=== PATIENT | male | born 1965 | race Caucasian/White ===

== ENCOUNTER 2016-10-16 18:38 | Emergency (ER) | payer MEDICARE, MEDICAID ==
--- NOTE | 2016-10-16 19:22 | XRAY Preliminary Report ---
Exam: XR KNEE 4 VIEW RT IMPRESSION: Moderate degenerative joint disease. [facility] SITE ID: [id number]
--- NOTE | 2016-10-16 19:25 | XRAY Report ---
EXAM: RIGHT KNEE RADIOGRAPHY EXAM DATE: 10/16/2016 07:14 PM. CLINICAL HISTORY: Trauma, pain. COMPARISON: None. TECHNIQUE: 4 views, including oblique views. FINDINGS: Bones: Osteopenia. No definite fracture or other bone lesion. Joints: 3 compartment joint space narrowing with marginal lipping. No definite effusion. Soft Tissues: Unremarkable. IMPRESSION: Moderate degenerative joint disease. [facility] Referring Provider Line: [phone] SITE ID: [id number]
--- NOTE | 2016-10-16 20:19 | ED Physician Documentation ---
PD HPI LOWER EXT INJURY - Stated complaint Stated Complaint: R KNEE PX - Chief complaint Chief Complaint: Ext Problem - History obtained from History obtained from: Patient - History of Present Illness PD HPI LOW EXT INJURY LOCATION: Right, Knee Type of injury: Fall, Blunt / blow Where injury occurred: Street Timing - onset: How many hours ago (3) Timing - details: Abrupt onset Pain level max: 5 Pain level now: 5 Improved by: Ice, Immobilization Worsened by: Moving, Palpating Associated symptoms: Swelling, Discolored. No: Numbness, Tingling Contributing factors: No: Anticoagulated, Prior ortho surgery Similar symptoms before: Has not had sx before Recently seen: Not recently seen - Additional information Additional information: Patient is a 51 year old obese male with a history of severe copd who is presenting to the emergency department for right knee pain. Patient states that he slipped today landing on his right knee. Patient states that the pain, bruising and swelling got progressively worse so he came to the emergency department for evaluation. Review of Systems Constitutional: denies: Fever, Chills Eyes: denies: Irritation Ears: denies: Ear pain, Drainage/discharge Nose: denies: Epistaxis Cardiac: denies: Chest pain / pressure, Palpitations Respiratory: denies: Cough GI: denies: Nausea, Vomiting : denies: Unable to Void, Incontinent Skin: denies: Abrasion (s), Laceration (s) Musculoskeletal: reports: Extremity pain, Joint pain, Extremity swelling, Joint swelling Neurologic: denies: Focal weakness, Numbness, Headache, Head injury Immunocompromised: denies: Immunocompromised PD PAST MEDICAL HISTORY - Past Medical History Past Medical History: Yes Cardiovascular: None Respiratory: Asthma, Shortness of breath, Other Neuro: None Endocrine/Autoimmune: None GI: None : None HEENT: Other Psych: None Musculoskeletal: None Derm: None Other Past Medical History: pulmonary fibrosis home 02 with cpap machine at night - Past Surgical History Past Surgical History: Yes General: Cholecystectomy Cardiovascular: Other - Present Medications Home Medications: Ambulatory Orders Medication Instructions Recorded Confirmed Albuterol [Proventil Hfa] 2 puffs INH Q4-6H 02/14/13 10/16/16 Montelukast Sodium [Singulair] 10 mg PO DAILY 02/14/13 10/16/16 Ipratropium [Atrovent] 2 puffs INH QID PRN 08/18/13 10/16/16 predniSONE [Deltasone] 20 mg PO DAILY 06/21/14 10/16/16 Albuterol Oral Soln 3 ml NEB BID 09/13/14 10/16/16 Metoprolol Tartrate 12.5 mg PO BID 09/13/14 10/16/16 Budesonide/Formoterol Fumarate 2 puffs IH BID 05/23/15 10/16/16 [Symbicort 160-4.5 Mcg Inhaler] Ipratropium/Albuterol [Duoneb] 2.5 ml INH BID 05/23/15 10/16/16 - Allergies Allergies/Adverse Reactions: Allergies Allergy/AdvReac Type Severity Reaction Status Date / Time No Known Drug Allergies Allergy Verified 02/14/13 13:22 - Social History Does the pt smoke?: No Smoking Status: Never smoker Does the pt drink ETOH?: No Does the pt have substance abuse?: No - Immunizations Immunizations are current?: No - POLST Patient has POLST: No PD ED PE NORMAL - Vitals Vital signs reviewed: Yes - General General: Alert and oriented X 3, No acute distress - HEENT HEENT: Atraumatic, Moist mucous membranes - Neck Neck: Supple, no meningeal sign, No bony TTP - Cardiac Cardiac: RRR, Strong equal pulses - Neuro Neuro: Alert and oriented X 3, No motor deficit, No sensory deficit, Normal speech - Psych Psych: Normal mood, Normal affect PD ED PE EXPANDED - General General: Other (morbidly obese) - Respiratory Respiratory: Wheezing. No: Retractions - Derm Derm: Bruising (severe bruising of right knee) - Extremities Extremities: Swelling, Bruising, Right knee, Pedal Pulses Present, Sensory intact, Vascular intact. No: Decreased/absent pulse, Cold foot, Pale foot Results - Vitals Vitals: Vital Signs - 24 hr 10/16/16 10/16/16 10/16/16 18:48 18:52 20:25 Temperature 35.7 C L Heart Rate 86 124 H 123 H Respiratory 24 22 Rate Blood Pressure 168/96 H O2 Saturation 124 H 91 L 91 L 10/16/16 10/16/16 20:45 21:20 Temperature Heart Rate 116 H 113 H Respiratory 20 18 Rate Blood Pressure 136/91 H O2 Saturation 91 L Oxygen O2 Source Room air - Rads (name of study) knee x-ray Radiology: Final report received (djd no fracture or dislocation) PD MEDICAL DECISION MAKING - ED course Complexity details: reviewed old records, reviewed results, re-evaluated patient , d/w patient ED course: Patient was seen and examined at bedside. Patient had already been set for imaging. When patient returned the results were reviewed. Patient had no acute fracture or dislocation. patient was placed in two kimberley bandages and given a cane to aid in ambulation. Patient was mildly hypoxic due to his chronic lung disease and was treated with levalbuterol. Patient was given detailed discharge and return instructions. patient required no further work up and was stable for discharge with outpatient follow up. Departure - Departure Disposition: 01 Home, Self Care Clinical Impression: Traumatic hematoma of right knee Condition: Good Instructions: ED Hematoma Follow-Up: Bandar Coker MD [Primary Care Provider] - As Needed Comments: There was no acute fracture or dislocation today. You should continue to ice your knee and take motrin or tylenol as needed for pain. You should return to the emergency department for loss of sensation, uncontrollable pain or swelling , new worsening or uncontrollable symptoms. Discharge Date/Time: 10/16/16 21:30
[2016-10-16] MEDS ORDERED: LEVALBUTEROL 1.25 MG INH STA (20:34)
[2016-10-16] MEDS ORDERED: LEVALBUTEROL 1.25 MG INH ONE (20:42)
[2016-10-16] MEDS ORDERED: SODIUM CHLORIDE INHALATION 3 ML NEB ONE (20:43)
[2016-10-16 21:21] VITALS: BP 136/91
== END 2016-10-16 21:30 | disposition home or self-care (01) ==
LOC: ED 18:38
DX: S80.01XA Contusion of right knee, initial encounter (principal); W01.0XXA Fall on same level from slipping, tripping and stumbling without subsequent striking against object, initial encounter; Y92.410 Unspecified street and highway as the place of occurrence of the external cause; J44.9 Chronic obstructive pulmonary disease, unspecified; J84.10 Pulmonary fibrosis, unspecified; R09.02 Hypoxemia; E66.01 Morbid (severe) obesity due to excess calories; Z99.81 Dependence on supplemental oxygen; Z79.52 Long term (current) use of systemic steroids; Z68.43 Body mass index [BMI] 50.0-59.9, adult
CPT/HCPCS: 73564; 94640; 99283; A9270